=== PATIENT | male | born 1960 | race Caucasian/White ===

== ENCOUNTER → 2017-07-23 | Outpatient (CLI) | payer OTHER ==
--- NOTE | 2017-07-23 15:55 | MR ---
EXAMINATION TYPE: MR brain and iac wo/w con DATE OF EXAM: 07/23/2017 COMPARISON: NONE HISTORY: 57-year-old male Sensorineural hearing loss, left ear, sinusitis, vertigo TECHNIQUE: Multiplanar, multisequence images of the brain and brainstem were acquired before and aft er administration of 7.5 mL IV Gadavist. Diffusion weighted imaging was performed. Additional coned -down sequences through the internal auditory canals and posterior cranial fossa before and after IV contrast administration. FINDINGS: Diffusion weighted images demonstrate no evidence of an acute ischemic lesion in the brain. T2/FLAIR weighted sequences show no white matter signal abnormality. Major intracranial flow voids are intact. Midline structures demonstrate normal morphology. The craniocervical junction is normal. Brain volume is maintained. No hydrocephalus. There is no evidence of an acute intracranial hemorrhage, infarct, mass, mass-effect or an extra-axia l fluid collection. There is no cerebellopontine angle mass. The internal auditory canals are symmetric. Brainstem and skull base abnormalities are not seen. There appears to be opacification of the left mastoid air cells and left middle ear cavity with corre sponding patchy enhancement. There may be adjacent dural enhancement along attic. Post contrast images demonstrate no evidence of pathologic enhancement elsewhere in the posterior scrap wheeler nial fossa or the internal auditory canals. Dural venous sinuses are patent. There is some left-sided nasal septal deviation. Moderate mucosal thickening within the ethmoid air c ells and mild mucosal thickening throughout the remainder of the paranasal sinuses. Globes are intact . IMPRESSION: 1. Extensive opacification of the left mastoid air cells and left middle ear cavity with correspondin g patchy enhancement. Correlate for otomastoiditis. Extensive cholesteatoma is considered less likely . 2. Enhancement of the adjacent dura along the attic is probably reactive to the inflammation. A tempo ral bone CT can further characterize any osseous changes such as erosions or dehiscence to the intrac ranial space. 3. Otherwise, no acute intracranial abnormality seen. 4. Mild to moderate chronic paranasal sinus disease and leftward nasal septal deviation.
== END | disposition home or self-care (01) ==
LOC: RADMRIMAIN 14:44
PROVIDERS: ATTEND Otolaryngology Otolaryngic Allergy
DX: H90.42 Sensorineural hearing loss, unilateral, left ear, with unrestricted hearing on the contralateral side (principal)
CPT/HCPCS: 70553; A9581

== ENCOUNTER → 2021-09-14 | Outpatient (CLI) | payer OTHER ==
--- NOTE | 2021-09-14 09:37 | CT ---
EXAMINATION TYPE: CT iac wo con DATE OF EXAM: 09/14/2021 COMPARISON: MRI dated 07/23/2017 HISTORY: Lt ear pain CT DLP: 229mGycm Automated exposure control for dose reduction was used. FINDINGS: Hypopneumatized mastoid air cells. Complete opacification of the left mastoid air cells with surround ing sclerotic changes which could be related to chronic mastoiditis. This is associated with apparent chronic perforation of the left tympanic membrane and nonvisualized left middle ear ossicles, possib ly chronically eroded. There is soft tissue thickening of the left middle ear cavity mainly the mesot ympanum and hypotympanum with nonvisualization/erosion of the left scutum. The overall picture could be due to chronic otomastoiditis however previous surgical intervention or underlying cholesteatoma cannot be excluded by this CT scan. Unremarkable right middle ear cavity. Sy mmetrical unremarkable internal auditory canals and inner ear structures. Left tegmen tympani tiny angus ne defect. Mucosal thickening of the ethmoid air cells and to a lesser extent the maxillary sinuses. Unremarkable visualized portion of the brain and orbits. IMPRESSION: Chronic changes involving the left middle ear cavity and left mastoid air cells as detailed above wit h nonvisualization/chronic erosion of the left middle ear ossicles and left-sided scutum. This could be related to chronic otomastoiditis however underlying cholesteatoma or previous surgical interventi on cannot be excluded, please correlate clinically. Further ENT consultation and further MRI with DWI assessment can be considered if not already performed. Other findings as described above.
== END | disposition home or self-care (01) ==
LOC: RADCTMAIN 07:55
PROVIDERS: ATTEND Otolaryngology
DX: H93.8X2 Other specified disorders of left ear (principal)
CPT/HCPCS: 70480

== ENCOUNTER → 2024-11-12 | Outpatient (CLI) | payer MEDICARE ==
[2024-11-12 14:02] LABS: African American GFR (CKD) 72 (>60 ml/min/1.73 sqM); Blood Urea Nitrogen 13 mg/dL (9-20); Non-African American GFR(CKD) 62 (>60 ml/min/1.73 sqM)
--- NOTE | 2024-11-12 15:37 | CT ---
EXAMINATION TYPE: CT urogram wo/w con DATE OF EXAM: 11/12/2024 3:22 PM COMPARISON: . 11/22/2011 CLINICAL INDICATION: Male, 64 years old with history of R31.1 BENIGN ESSENTIAL MICROSCOPIC HEMATURIA; PHH, microscopic hematuria TECHNIQUE: Urogram with imaging of the abdomen and pelvis. Coronal and sagittal reformats were performed. 2D and 3D reconstructions are performed to assist visualization of the urinary tract on a separate workstat ion. Contrast used:100 mL mL of with IV Contrast, Oral contrast used: None. CT DLP: 2544.5 mGycm, Automated exposure control for dose reduction was used. FINDINGS: LOWER CHEST: No significant findings. GENITOURINARY: RIGHT KIDNEY AND URETER: No calculi. No hydronephrosis or hydroureter. No renal mass or other lesions . No urothelial lesions: no filling defect, dilation, stricture or wall thickening. LEFT KIDNEY AND URETER: No calculi. No hydronephrosis or hydroureter. No renal mass or other lesions. No urothelial lesions: no filling defect, dilation, stricture or wall thickening. URINARY BLADDER: REPRODUCTIVE: Coarse calcifications of the prostate gland are identified. ABDOMEN LIVER: Unremarkable GALLBLADDER AND BILE DUCTS: Unremarkable. PANCREAS: Unremarkable. SPLEEN: Unremarkable. ADRENAL GLANDS: Left adrenal 25 mm nodule measuring - 9 Hounsfield units. No right adrenal nodules. STOMACH AND BOWEL: . No evidence of bowel obstruction. Scattered colonic diverticula present. PERITONEUM: No evidence of pneumoperitoneum, free fluid, or adenopathy. VASCULATURE: No evidence of aortic aneurysm. MUSCULOSKELETAL: No acute osseous abnormalities LYMPH NODES: No gross evidence for lymphadenopathy. SOFT TISSUE/ABDOMINAL WALL: Bilateral fat-containing inguinal hernias. IMPRESSION: 1. No evidence of urolithiasis or renal/urothelial neoplasm. 2. Left adrenal nodule compatible with benign lipid rich adrenal adenoma. No follow-up recommended. [facility], , 11/12/2024 3:35 PM
== END | disposition home or self-care (01) ==
LOC: RADCTMAIN 13:17
PROVIDERS: ATTEND Urology
DX: E27.9 Disorder of adrenal gland, unspecified (principal); R31.1 Benign essential microscopic hematuria
CPT/HCPCS: 82565; 84520; 74178; 36415; 74400; Q9967